=== PATIENT | male | born 1990 | race Caucasian/White ===

== ENCOUNTER → 2017-02-01 | Outpatient (CLI) | payer OTHER ==
[~2017-02-01] MED LIST: GADOBUTROL 10 ML VIAL IVP ONE
== END ==
LOC: FIMAGING 15:23
PROVIDERS: ATTEND Psychiatry & Neurology Neurology
DX: R90.89 Other abnormal findings on diagnostic imaging of central nervous system (principal); R94.01 Abnormal electroencephalogram [EEG]; R40.4 Transient alteration of awareness; Z87.828 Personal history of other (healed) physical injury and trauma
CPT/HCPCS: 70553; A9585

== ENCOUNTER → 2017-09-14 | Outpatient (CLI) | payer OTHER ==
--- NOTE | 2017-09-21 14:12 | CPEEG ---
[f rep st] ELECTROENCEPHALOGRAM DATE OF STUDY: 09/14/2017 INTERPRETATION: This 4-hour video EEG recording is normal. There were no potentially epileptogenic abnormalities present in the awake or sleep recordings. During the video EEG monitoring session, the patient did not have any clinical events. REPORT: This 4-hour video EEG contains 10-11 Hz alpha activity to the posterior head regions. There was no abnormal activation at rest, during photic stimulation or hyperventilation. With hyperventil ation, the patient had a normal hyperventilation buildup response. The patient became drowsy and fel l into sustained sleep during the study. There was no abnormal activation during drowsiness, sleep, or during times of arousal. The patient did not have any clinical events during the video EEG monito ring study. /[id number]/MODL
== END ==
LOC: FCP 09:37
PROVIDERS: ATTEND Psychiatry & Neurology Neurology
DX: G40.909 Epilepsy, unspecified, not intractable, without status epilepticus (principal)

== ENCOUNTER → 2017-10-04 | Outpatient (CLI) | payer OTHER ==
--- NOTE | 2017-10-04 13:35 | CPEKG ---
Heart Rate: 74 RR Interval: 811 P-R Interval: 164 QRSD Interval: 100 QT Interval: 384 QTC Interval: 426 P [place]: 38 QRS [place]: 46 T Wave [place]: 18 EKG Severity - NORMAL ECG - EKG Impression: SINUS RHYTHM Electronically Signed By: Arjun Alvarez 04-Oct-2017 16:33:45
== END ==
LOC: BCP 12:53
PROVIDERS: ATTEND Psychiatry & Neurology Neurology
DX: G40.909 Epilepsy, unspecified, not intractable, without status epilepticus (principal)

== ENCOUNTER 2018-02-10 02:21 | Emergency (ER) | payer OTHER ==
[2018-02-10] MEDS ORDERED: KETOROLAC 15 MG/1 ML SDV IVP ONE (02:53)
--- NOTE | 2018-02-10 02:53 | EDPHY ---
H & P Stated Complaint: pain with breathing Time Seen by Provider: 02/10/18 02:45 HPI/ROS: Chief Complaint: Chest pain with breathing HPI: 27-year-old male's had worsening chest pain with breathing since yesterday afternoon. Pain got significantly worse this evening. It hurts to take a deep breath primarily in his right upper chest. He has also been having some subjective fevers and chills. No cough. No leg pain or swelling. No central his chest tightness. At worst is an 8/10. There are no aggravating or alleviating factors. No family history of blood clots or coronary artery disease. He does not smoke. No recent falls or trauma. ROS: 10 systems were reviewed and were negative except those elements noted in the HPI. PMH: Bipolar disorder Social History: No smoking, occasional alcohol, no recreational drug use Family History: non-contributory Physical Exam: Gen: Awake, Alert, No Distress HEENT: Nose: no rhinorrhea Eyes: PERRLA, EOMI Mouth: Moist mucosa Neck: Supple, no JVD Chest: Patient has chest wall tenderness is right upper chest and midclavicular line about ribs 3 through 5, no deformity, lungs clear to auscultation Heart: S1, S2 normal, no murmur Abd: Soft, non-tender, no guarding Back: no CVA tenderness, no midline tenderness Ext: no edema, non-tender Skin: no rash Neuro: CN II-XII intact, Sensation grossly intact, Strength 5/5 in bilateral upper and lower extremities - Personal History Current Tetanus/Diphtheria Vaccine: Unsure Current Tetanus Diphtheria and Acellular Pertussis (TDAP): Unsure - Medical/Surgical History Hx Asthma: No Hx Chronic Respiratory Disease: No Hx Diabetes: No Hx Cardiac Disease: No Hx Renal Disease: No Hx Cirrhosis: No Hx Alcoholism: No Hx HIV/AIDS: No Hx Splenectomy or Spleen Trauma: No Other PMH: TBI, depression - Social History Smoking Status: Never smoked Constitutional: Initial Vital Signs Temperature (C) 38.0 C 02/10/18 02:26 Heart Rate 100 02/10/18 02:26 Respiratory Rate 16 02/10/18 02:26 Blood Pressure 107/73 02/10/18 02:26 O2 Sat (%) 95 02/10/18 02:26 O2 Delivery Mode Room Air Allergies/Adverse Reactions: Penicillins Allergy (Mild, Verified 02/10/18 02:25) Rash amoxicillin Allergy (Verified 02/10/18 02:25) Home Medications: Medication Instructions Recorded Azithromycin [Zithromax] 250 mg PO DAILY #4 tab 02/10/18 Finasteride 02/10/18 [place] Carbonate 02/10/18 Risperidone 02/10/18 Medical Decision Making - Diagnostics EKG Interpretation: ECG time 3:20 a.m., sinus rhythm with a rate of 97, normal axis, normal intervals, no acute ST or T-wave changes. Impression: Normal ECG. Imaging Results: Chest x-ray shows a right-sided infiltrate consistent with pneumonia per my interpretation. Imaging: I viewed and interpreted images myself ED Course/Re-evaluation: 27-year-old male with right-sided chest pain with a right-sided infiltrate. D- dimer is negative. ECG and troponin are normal. Does not have any risk factors for coronary disease. Will start him on azithromycin. His oxygen saturations are 92-93% on room air. His symptoms are much improved. Will continue alternating ibuprofen acetaminophen, azithromycin, follow up with primary care physician in 2-3 days for recheck. - Data Points Laboratory Results: Laboratory Results 02/10/18 03:00 02/10/18 03:00 02/10/18 02/10/18 02/10/18 03:40 03:40 03:06 WBC RBC Hgb Hct MCV MCH MCHC RDW Plt Count MPV Neut % (Auto) Lymph % (Auto) [place] % (Auto) Eos % (Auto) Baso % (Auto) Nucleat RBC Rel Count Absolute Neuts (auto) Absolute Lymphs (auto) Absolute Monos (auto) Absolute Eos (auto) Absolute Basos (auto) Absolute Nucleated RBC Immature Gran % Immature Gran # D-Dimer 0.30 ug/mLFEU ug/mLFEU (0.00-0.50) Sodium Potassium Chloride Carbon Dioxide Anion Gap BUN Creatinine Estimated GFR Glucose Calcium POC Troponin I 0.00 ng/mL ng/mL (0.00-0.08) Nasal Influenza A PCR Pending Nasal Influenza B PCR Pending 02/10/18 02/10/18 03:00 03:00 WBC 9.54 10^3/uL H 10^3/uL (3.80-9.50) RBC 5.20 10^6/uL 10^6/uL (4.40-6.38) Hgb 16.1 g/dL g/dL (13.7-17.5) Hct 43.8 % % (40.0-51.0) MCV 84.2 fL fL (81.5-99.8) MCH 31.0 pg pg (27.9-34.1) MCHC 36.8 g/dL H g/dL (32.4-36.7) RDW 12.0 % % (11.5-15.2) Plt Count 200 10^3/uL 10^3/uL (150-400) MPV 9.8 fL fL (8.7-11.7) Neut % (Auto) 86.6 % H % (39.3-74.2) Lymph % (Auto) 8.0 % L % (15.0-45.0) [place] % (Auto) 4.8 % % (4.5-13.0) Eos % (Auto) 0.2 % L % (0.6-7.6) Baso % (Auto) 0.2 % L % (0.3-1.7) Nucleat RBC Rel Count 0.0 % % (0.0-0.2) Absolute Neuts (auto) 8.26 10^3/uL H 10^3/uL (1.70-6.50) Absolute Lymphs (auto) 0.76 10^3/uL L 10^3/uL (1.00-3.00) Absolute Monos (auto) 0.46 10^3/uL 10^3/uL (0.30-0.80) Absolute Eos (auto) 0.02 10^3/uL L 10^3/uL (0.03-0.40) Absolute Basos (auto) 0.02 10^3/uL 10^3/uL (0.02-0.10) Absolute Nucleated RBC 0.00 10^3/uL 10^3/uL (0-0.01) Immature Gran % 0.2 % % (0.0-1.1) Immature Gran # 0.02 10^3/uL 10^3/uL (0.00-0.10) D-Dimer Sodium 140 mEq/L mEq/L (135-145) Potassium 3.8 mEq/L mEq/L (3.3-5.0) Chloride 106 mEq/L mEq/L (97-110) Carbon Dioxide 22 mEq/l mEq/l (22-31) Anion Gap 12 mEq/L mEq/L (6-14) BUN 11 mg/dL mg/dL (7-23) Creatinine 0.9 mg/dL mg/dL (0.7-1.3) Estimated GFR > 60 Glucose 135 mg/dL H mg/dL (70-100) Calcium 9.8 mg/dL mg/dL (8.5-10.4) POC Troponin I Nasal Influenza A PCR Nasal Influenza B PCR Medications Given: Discontinued Medications Ketorolac Tromethamine (Toradol) 15 mg IVP EDNOW ONE Stop: 02/10/18 02:54 Last Admin: 02/10/18 03:43 Dose: 15 mg Point of Care Test Results: Chemistry 02/10/18 03:06 POC Troponin I 0.00 ng/mL ng/mL (0.00-0.08) Departure - Departure Disposition: Home, Routine, Self-Care Clinical Impression: Pneumonia Condition: Good Instructions: Pneumonia (ED) Additional Instructions: Please take your full course of antibiotics. Alternate acetaminophen (1000 mg) with ibuprofen (400 mg) every 4 hours as needed for fevers, chills, aches or pain. Follow up with her primary care physician in 2-3 days for recheck. Return to the emergency department for increasing pain, worsening cough, uncontrolled fevers or chills, weakness, or any other concerns. Referrals: Marisela Carmona MD [Primary Care Provider] - As per Instructions Prescriptions: Azithromycin [Zithromax] 250 mg PO DAILY #4 tab
[2018-02-10 03:09] LABS: PLATELET COUNT 200 10^3/uL (150-400)
[2018-02-10 04:20] VITALS: BP 122/70
[2018-02-10] MEDS ORDERED: AZITHROMYCIN 250 MG TAB PO ONE (04:27)
--- NOTE | 2018-02-10 07:19 | CPEKG ---
Test Reason : OPEN Blood Pressure : / mmHG Vent. Rate : 097 BPM Atrial Rate : 096 BPM P-R Int : 162 ms QRS Dur : 093 ms QT Int : 334 ms P-R-T Axes : 006 003 000 degrees QTc Int : 425 ms Sinus rhythm Borderline T wave abnormalities Borderline ST elevation, anterior leads Confirmed by Prudencio Mendez ([id number] on 02/10/2018 7:19:00 AM Referred By: Confirmed By:Prudencio Mendez
== END 2018-02-10 04:55 | disposition home or self-care (01) ==
DX: J18.9 Pneumonia, unspecified organism (principal)
CPT/HCPCS: 71046; 93005; 96374; 99285; J1885; 84484-PO